=== PATIENT | male | born 1960 | race Caucasian/White ===

== ENCOUNTER 2016-05-03 14:13 | Emergency (ER) | payer OTHER ==
[2016-05-03 14:50] VITALS: BP 134/75
[2016-05-03 15:20] LABS: Hematocrit 38 % (42-52); Hemoglobin 12.5 g/dl (14.0-18.0); Mean Corpuscular HGB Conc 33 g/dl (31-36); Mean Corpuscular Hemoglobin 30 pg (27-31); Mean Corpuscular Volume 92 fL (80-94); Mean Platelet Volume 8 um3 (7.4-10.4); Red Blood Count 4.09 10^6/ul (4.0-5.4); Red Cell Distribution Width 15 % (10.5-15)
--- NOTE | 2016-05-03 15:20 | RAD ---
HISTORY: Altered mental pedis COMPARISONS: None TECHNIQUE: Multiple contiguous axial CT scans were obtained of the head without intravenous contrast. FINDINGS: HEMORRHAGE/INFARCT: There is no hemorrhage or acute infarct. MASSES/SHIFT: There is no mass or shift. EXTRA-AXIAL SPACES: There are no extra-axial fluid collections. SULCI AND VENTRICLES: The sulci and ventricles are normal in size and position for the patient's stated age. CEREBRUM: There are no focal parenchymal abnormalities. BRAINSTEM: There are no focal parenchymal abnormalities. CEREBELLUM: There are no focal parenchymal abnormalities. VESSELS: The vessels are grossly normal. PARANASAL SINUSES: The paranasal sinuses are clear. ORBITS: The orbits are unremarkable. BONES AND SOFT TISSUE: No bone or soft tissue abnormalities are noted. OTHER: None IMPRESSION: NO ACUTE INTRACRANIAL PATHOLOGY.
--- NOTE | 2016-05-03 15:25 | RAD ---
INDICATION: Unresponsiveness COMPARISON: None. TECHNIQUE: Single AP portable view of the chest was obtained. FINDINGS: Image quality is compromised due to the relative inferiority of a portable chest x-ray. The heart and mediastinum exhibit normal size and contour. The lungs are grossly clear. There is no evidence of a large pleural effusion. Visualized bones are normal for the patient's age. IMPRESSION: No radiographic evidence for acute cardiopulmonary abnormality on this portable chest x-ray.
[2016-05-03 15:37] LABS: ALT 50 U/L (7-52); AST 65 U/L (13-39); Albumin 3.8 g/dL (3.2-5.2); Alkaline Phosphatase 106 U/L (34-104); Anion Gap 7 mmol/L (2-11); BUN/Creatinine Ratio 7.7 (8-20); Blood Urea Nitrogen 8 mg/dL (6-24); CO2 Carbon Dioxide 27 mmol/L (22-32); Calcium 9.3 mg/dL (8.6-10.3); Chloride 106 mmol/L (101-111); EGFR Non-African American 73.9 (>60); Glucose 122 mg/dL (70-100); Potassium 3.6 mmol/L (3.5-5.0); Sodium 140 mmol/L (133-145); Total Protein 7.8 g/dL (6.4-8.9)
[2016-05-03 15:39] LABS: Troponin I 0.01 ng/mL (<0.04)
[2016-05-03 15:56] LABS: Alcohol 249 mg/dL (<10); Salicylate < 2.50 mg/dL (<30)
[2016-05-03 17:10] LABS: Urine Bilirubin Negative (Negative); Urine Glucose Negative (Negative); Urine Nitrite Negative (Negative)
--- NOTE | 2016-05-03 17:22 | ED ---
Chris Rajan Adam, scribed for Wendy Ness MD on 05/03/16 at 1657 . Substance Abuse/Use - HPI Summary HPI Summary: Pt is a 56 year old male presenting after excessive EtOH intake. He states that he drank too much last night and his family was unable to wake him up this morning. He has no complaints at this time. He denies any feelings of SI. He denies any use of drugs or tobacco. Pt lives alone. PMHx of DM. - History Of Current Complaint Chief Complaint: EDSubstanceAbuse Stated Complaint: UNRESPONSIVE Time Seen by Provider: 05/03/16 14:44 Hx Obtained From: Patient Ingestion History: Type/Name Of Drug - EtOH, Approximate Time Of Ingestion - Last night Overdose Characteristics: Oral Timing Of Abuse: Binge Use Severity Initially: Moderate Severity Currently: Mild Character: Lethargic Aggravating Factor(s): Nothing Alleviating Factor(s): Nothing Associated Signs And Symptoms: Negative - Allergies/Home Medications Allergies/Adverse Reactions: Allergies Allergy/AdvReac Type Severity Reaction Status Date / Time No Known Allergies Allergy Verified 10/01/13 13:35 PMH/Surg Hx/FS Hx/Imm Hx Endocrine/Hematology History: Reports: Hx Diabetes Cardiovascular History: Reports: Hx Hypercholesterolemia, Hx Hypertension Denies: Hx Pacemaker/ICD History: Denies: Hx Renal Disease Musculoskeletal History: Reports: Hx Back Problems Sensory History: Denies: Hx Hearing Aid Psychiatric History: Reports: Hx Depression Denies: Hx Panic Disorder Infectious Disease History: No Infectious Disease History: Denies: Traveled Outside the [place] in Last 30 Days - Family History Known Family History: Positive: Cardiac Disease, Hypertension Negative: Blood Disorder - Social History Occupation: Unemployed Lives: Alone Alcohol Use: Daily Hx Substance Use: No Substance Use Type: Reports: None Hx Tobacco Use: Yes Smoking Status (MU): Former Smoker Type: Cigarettes Amount Used/How Often: 5-10 CIGARETTES PER DAY Have You Smoked in the Last Year: Yes Review of Systems Positive: Fatigue Positive: Other - Scabs with dried blood on left lower leg Psychological: Normal Negative: Depressed All Other Systems Reviewed And Are Negative: Yes Physical Exam Triage Information Reviewed: Yes Vital Signs On Initial Exam: Initial Vitals Temp Pulse Resp BP Pulse Ox 98.1 F 79 10 134/75 90 05/03/16 14:40 05/03/16 14:40 05/03/16 14:40 05/03/16 14:40 05/03/16 14:40 Vital Signs Reviewed: Yes Appearance: Positive: Well-Appearing, No Pain Distress Skin: Positive: Warm, Skin Color Reflects Adequate Perfusion, Dry, Other - Scabs with dried blood on left lower leg Eyes: Positive: EOMI, LAURA ENT: Positive: Pharynx normal, TMs normal Neck: Positive: Supple, Nontender Respiratory/Lung Sounds: Positive: Clear to Auscultation, Breath Sounds Present. Negative: Rales, Rhonchi, Wheezes Cardiovascular: Positive: RRR. Negative: Murmur, Rub Abdomen Description: Positive: Nontender, Soft. Negative: Distended, Guarding Bowel Sounds: Positive: Present Musculoskeletal: Positive: Strength/ROM Intact. Negative: Edema Left, Edema Right Neurological: Positive: Sensory/Motor Intact, Alert, Oriented to Person Place, Time, CN Intact II-III Psychiatric: Positive: Affect/Mood Appropriate - Jillian Coma Scale Coma Scale Total: 15 Diagnostics - Vital Signs Vital Signs Temp Pulse Resp BP Pulse Ox 05/03/16 16:00 71 19 96 05/03/16 15:20 75 13 96 05/03/16 15:00 10 05/03/16 14:47 81 6 87 05/03/16 14:45 134/75 05/03/16 14:40 98.1 F 79 10 134/75 90 - Laboratory Lab Results: Lab Results 05/03/16 05/03/16 05/03/16 Range/Units 14:35 14:35 14:35 WBC 4.0 (3.5-10.8) 10^3/ul RBC 4.09 (4.0-5.4) 10^6/ul Hgb 12.5 L (14.0-18.0) g/dl Hct 38 L (42-52) % MCV 92 (80-94) fL MCH 30 (27-31) pg MCHC 33 (31-36) g/dl RDW 15 (10.5-15) % Plt Count 134 L (150-450) 10^3/ul MPV 8 (7.4-10.4) um3 Neut % (Auto) 58.6 (38-83) % Lymph % (Auto) 25.2 (25-47) % [place] % (Auto) 9.7 H (1-9) % Eos % (Auto) 4.7 (0-6) % Baso % (Auto) 1.8 (0-2) % Absolute Neuts (auto) 2.4 (1.5-7.7) 10^3/ul Absolute Lymphs (auto) 1.0 (1.0-4.8) 10^3/ul Absolute Monos (auto) 0.4 (0-0.8) 10^3/ul Absolute Eos (auto) 0.2 (0-0.6) 10^3/ul Absolute Basos (auto) 0.1 (0-0.2) 10^3/ul Absolute Nucleated RBC 0 10^3/ul Nucleated RBC % 0.1 Sodium 140 (133-145) mmol/L Potassium 3.6 (3.5-5.0) mmol/L Chloride 106 (101-111) mmol/L Carbon Dioxide 27 (22-32) mmol/L Anion Gap 7 (2-11) mmol/L BUN 8 (6-24) mg/dL Creatinine 1.04 (0.67-1.17) mg/dL Est GFR ( Amer) 95.0 (>60) Est GFR (Non-Af Amer) 73.9 (>60) BUN/Creatinine Ratio 7.7 L (8-20) Glucose 122 H (70-100) mg/dL Lactic Acid (0.5-2.0) mmol/L Calcium 9.3 (8.6-10.3) mg/dL Total Bilirubin 0.60 (0.2-1.0) mg/dL AST 65 H (13-39) U/L ALT 50 (7-52) U/L Alkaline Phosphatase 106 H (34-104) U/L Ammonia 51 (16-53) mol/L Troponin I 0.01 (<0.04) ng/mL Total Protein 7.8 (6.4-8.9) g/dL Albumin 3.8 (3.2-5.2) g/dL Globulin 4.0 (2-4) g/dL Albumin/Globulin Ratio 1.0 (1-3) Salicylates < 2.50 (<30) mg/dL Serum Alcohol 249 H (<10) mg/dL 05/03/16 Range/Units 14:35 WBC (3.5-10.8) 10^3/ul RBC (4.0-5.4) 10^6/ul Hgb (14.0-18.0) g/dl Hct (42-52) % MCV (80-94) fL MCH (27-31) pg MCHC (31-36) g/dl RDW (10.5-15) % Plt Count (150-450) 10^3/ul MPV (7.4-10.4) um3 Neut % (Auto) (38-83) % Lymph % (Auto) (25-47) % [place] % (Auto) (1-9) % Eos % (Auto) (0-6) % Baso % (Auto) (0-2) % Absolute Neuts (auto) (1.5-7.7) 10^3/ul Absolute Lymphs (auto) (1.0-4.8) 10^3/ul Absolute Monos (auto) (0-0.8) 10^3/ul Absolute Eos (auto) (0-0.6) 10^3/ul Absolute Basos (auto) (0-0.2) 10^3/ul Absolute Nucleated RBC 10^3/ul Nucleated RBC % Sodium (133-145) mmol/L Potassium (3.5-5.0) mmol/L Chloride (101-111) mmol/L Carbon Dioxide (22-32) mmol/L Anion Gap (2-11) mmol/L BUN (6-24) mg/dL Creatinine (0.67-1.17) mg/dL Est GFR ( Amer) (>60) Est GFR (Non-Af Amer) (>60) BUN/Creatinine Ratio (8-20) Glucose (70-100) mg/dL Lactic Acid 1.6 (0.5-2.0) mmol/L Calcium (8.6-10.3) mg/dL Total Bilirubin (0.2-1.0) mg/dL AST (13-39) U/L ALT (7-52) U/L Alkaline Phosphatase (34-104) U/L Ammonia (16-53) mol/L Troponin I (<0.04) ng/mL Total Protein (6.4-8.9) g/dL Albumin (3.2-5.2) g/dL Globulin (2-4) g/dL Albumin/Globulin Ratio (1-3) Salicylates (<30) mg/dL Serum Alcohol (<10) mg/dL Result Diagrams: 05/03/16 14:35 05/03/16 14:35 Lab Statement: Any lab studies that have been ordered have been reviewed, and results considered in the medical decision making process. - Radiology CXR Radiology Interpretation Completed By: Radiologist - IMPRESSION: No radiographic evidence for acute cardiopulmonary abnormality on this portable chest x-ray. - CT BRAIN CT Interpretation Completed By: Radiologist - IMPRESSION: NO ACUTE INTRACRANIAL PATHOLOGY. - Additional Comments Diagnostic Additional Comments: Serum Alcohol - 249 Course/Dx - Course Course Of Treatment: 56 yo male arrived with etoh pt did well here sleeping and then asked to go home, able to ambulate etoh clearly below 200 determined safe to be at home - Diagnoses Provider Diagnoses: ETOH abuse Discharge - Discharge Plan Condition: Stable Disposition: HOME Patient Education Materials: Alcohol Intoxication (ED) Referrals: Bear Tapia MD [Primary Care Provider] - Additional Instructions: Follow up with Dr. Tapia this week. The documentation as recorded by the Chris armstrong Adam accurately reflects the service I personally performed and the decisions made by me, Wendy Ness MD.
[2016-05-03 21:43] LABS: TSH (Thyroid Stimulating Horm) 1.03 mcIU/mL (0.34-5.60)
== END 2016-05-03 17:05 | disposition home or self-care (01) ==
LOC: ED 14:13
DX: F10.129 Alcohol abuse with intoxication, unspecified (principal); Y90.8 Blood alcohol level of 240 mg/100 ml or more
CPT/HCPCS: 36415; 70450; 71010; 80053; 80320; 80329; 81003; 82140; 83605; 84443; 84484; 85025; 99282; G0480

== ENCOUNTER 2016-05-18 00:07 | Observation (INO) | payer OTHER ==
[2016-05-18] MEDS ORDERED: NS 0.9% 1000 ML* 1,000 ML IV ONE ×2 (00:16→00:34)
[2016-05-18] MEDS ORDERED: Naloxone* 0.4 MG/ML 1 ML VIAL IV PUSH ONE (00:34)
[2016-05-18] MEDS ORDERED: Naloxone* 0.4 MG/ML 10 ML VIAL ONE (00:35)
[2016-05-18 01:23] LABS: Hematocrit 32 % (42-52); Hemoglobin 10.6 g/dl (14.0-18.0); Mean Corpuscular HGB Conc 33 g/dl (31-36); Mean Corpuscular Hemoglobin 31 pg (27-31); Mean Corpuscular Volume 92 fL (80-94); Mean Platelet Volume 9 um3 (7.4-10.4); Red Blood Count 3.44 10^6/ul (4.0-5.4); Red Cell Distribution Width 15 % (10.5-15); White Blood Count 5.7 10^3/ul (3.5-10.8)
[2016-05-18 01:29] LABS: Add Diff/Slide Review? Slide Review Added; Comments Flag Yes
[2016-05-18 01:38] LABS: ALT 41 U/L (7-52); AST 64 U/L (13-39); Albumin 2.9 g/dL (3.2-5.2); Alkaline Phosphatase 67 U/L (34-104); BUN/Creatinine Ratio 10.5 (8-20); Blood Urea Nitrogen 16 mg/dL (6-24); CO2 Carbon Dioxide 21 mmol/L (22-32); Calcium 7.9 mg/dL (8.6-10.3); Chloride 101 mmol/L (101-111); EGFR African American 61.3 (>60); EGFR Non-African American 47.7 (>60); Globulin 3.2 g/dL (2-4); Glucose 141 mg/dL (70-100); Sodium 133 mmol/L (133-145); Total Protein 6.1 g/dL (6.4-8.9)
[2016-05-18 01:43] LABS: Anion Gap 11 mmol/L (2-11); Potassium 2.6 mmol/L (3.5-5.0)
[2016-05-18] MEDS ORDERED: KCL 20 MEQ/100 ML IVPREMIX* 20 MEQ/100 ML BAG IV ONE (01:45)
[2016-05-18] MEDS ORDERED: cefTRIAXone(*) 1 GM in NS 0.9% 50 ML* 50 ML IVPB ONE (02:08)
[2016-05-18] MEDS ORDERED: Clindamycin 900 MG IVPREMIX(* 900 MG/50 ML SDV IV ONE (02:08)
[2016-05-18 02:19] LABS: Acetaminophen < 15 mcg/mL; Alcohol 233 mg/dL (<10); Salicylate < 2.50 mg/dL (<30)
--- NOTE | 2016-05-18 02:57 | HP ---
H&P (Free Text) History and Physical: PCP: Saravanan Tapia MD Date/Time of Evaluation: 05/18/2016 0250 CC: overdose HPI: Mr Gorman is a 56YO male currently too somnolent to give a history. He rouses with moderate tactile stimulation, but falls back to sleep prior to being able to answer a question. Therefore this history is obtained via medical staff & the available medical record. Per EMS report, they were called to Mr Gorman's home by family who reported extensive alcohol consumption. Upon their arrival, he was found unresponsive with agonal breathing. After an intranasal dose of naloxone followed by a 2mg IV dose, his respirations had stabilized and he was able to open his eyes and mumble. In the ED, he has been given an additional 2mg IV naloxone for respiratory suppression to which he again responded favorably. However, currently he is asleep snoring lightly with an saO2 of 83% on 15L oxymask. Have requested switch to vapotherm and will admit to ICU on naloxone GTT. Evaluation is notable for hypotension, BP 80-90/40-50s w/ MAP in low 60s. Labs are notable for interval worsening of a normocytic anemia, K 2.6, creatinine 1.5 (baseline 0.9), albumin 2.9, & glucose 141. Serum alcohol is 233, negative salicylates & acetaminophen. ECG is benign. CXR shows interval development of RUL infiltrate suspicious for aspiration. PMedHx Allergies No Known Allergies Allergy (Verified 10/01/13 13:35) DM2 lower GI bleed HTN HLD OAB depression Ambulatory Orders Nursing to reconcile. FLUoxetine CAP* [PROzac CAP*] 10 mg PO DAILY 07/20/12 Simvastatin [Zocor 5 MG-] 5 mg PO DAILY 07/20/12 Sitagliptin Phosphate [Januvia] 100 mg PO DAILY 07/20/12 Lisinopril & Hydrochlorothiazi [Lisinopril/Hydrochlorothi 20-12.5 mg] 1 tab PO DAILY 10/01/13 Oxybutynin Chloride [Oxybutynin Chloride ER] 15 mg PO BEDTIME 10/01/13 Perphenazine 2 tab PO BEDTIME 10/01/13 metFORMIN* [Glucophage*] 500 mg PO BID 10/01/13 Cyclobenzaprine TAB* [Flexeril TAB*] 10 mg PO TID PRN #14 tab 08/28/15 HYDROcodone/ACETAMIN 5-325 MG* [Hustle 5-325 TAB*] 1 tab PO Q4H PRN #14 tab MDD 6 08/28/15 Cephalexin CAP* [Keflex CAP*] 500 mg PO QID #40 cap 11/21/15 oxyCODONE/Acetamin 5/325 MG* [Percocet 5/325 TAB*] 1 tab PO Q8H PRN #12 tab MDD THREE TABS 11/21/15 PSurgHx unobtainable SocHx: unobtainable FamHx: Mother: uterine CA; otherwise positive for DM ROS: as above, otherwise reviewed and all were negative Constitutional: NAD, normally developed, overweight white male vitals: Vital Signs Temp 36.6 C 05/18/16 03:25 Pulse 84 05/18/16 03:00 Resp 15 05/18/16 03:00 BP 95/49 05/18/16 02:41 Pulse Ox 94 05/18/16 03:00 Intake & Output 05/17/16 05/17/16 05/18/16 11:59 23:59 11:59 Intake Total 2250 Balance 2250 Weight 99.79 kg Intake: IV Fluids 2150 IVPB 100 HEENM: atraumatic; sclera/conjunctiva: non-icteric/clear; pupils 2-3mm, minimally reactive; EOMI: unable to assess, disconjugate gaze; hearing: unable to assess; oropharynx: clear, mucosa tacky Neck: soft tissue: non-tender; thyroid: normal Pulmonary: clear to auscultation bilaterally, good aeration, no accessory muscle use CV: RR/RR, normal S1S2, no carotid bruit, no jugular venous distention, 2+ B DP/ PT, no edema Abdominal: soft, non-distended, non-tender, no rebound/guarding/rigidity, normoactive bowel sounds, no hepatosplenomegaly or masses, no costovertebral angle tenderness Musculoskeletal: general: grossly intact; gait: unable to assess Integumental: normal appearance and texture of exposed skin Psychiatric orientation: somnolent, unable to answer questions affect: intoxicated mood: acquiescent eye contact: absent content: absent responses: gutteral, incomprehensible insight: poor to absent currently Testing: Lab Results 05/18/16 05/18/16 Range/Units 01:15 01:15 WBC 5.7 (3.5-10.8) 10^3/ul RBC 3.44 L (4.0-5.4) 10^6/ul Hgb 10.6 L (14.0-18.0) g/dl Hct 32 L (42-52) % MCV 92 (80-94) fL MCH 31 (27-31) pg MCHC 33 (31-36) g/dl RDW 15 (10.5-15) % Plt Count 87 L (150-450) 10^3/ul MPV 9 (7.4-10.4) um3 Neut % (Auto) 83.4 H (38-83) % Lymph % (Auto) 7.3 L (25-47) % [place] % (Auto) 7.7 (1-9) % Eos % (Auto) 0.9 (0-6) % Baso % (Auto) 0.7 (0-2) % Absolute Neuts (auto) 4.7 (1.5-7.7) 10^3/ul Absolute Lymphs (auto) 0.4 L (1.0-4.8) 10^3/ul Absolute Monos (auto) 0.4 (0-0.8) 10^3/ul Absolute Eos (auto) 0 (0-0.6) 10^3/ul Absolute Basos (auto) 0 (0-0.2) 10^3/ul Absolute Nucleated RBC 0 10^3/ul Nucleated RBC % 0.1 Hem Pathologist Commnt Pending Sodium 133 (133-145) mmol/L Potassium 2.6 L* (3.5-5.0) mmol/L Chloride 101 (101-111) mmol/L Carbon Dioxide 21 L (22-32) mmol/L Anion Gap 11 (2-11) mmol/L BUN 16 (6-24) mg/dL Creatinine 1.52 H (0.67-1.17) mg/dL Est GFR ( Amer) 61.3 (>60) Est GFR (Non-Af Amer) 47.7 (>60) BUN/Creatinine Ratio 10.5 (8-20) Glucose 141 H (70-100) mg/dL Calcium 7.9 L (8.6-10.3) mg/dL Total Bilirubin 0.50 (0.2-1.0) mg/dL AST 64 H (13-39) U/L ALT 41 (7-52) U/L Alkaline Phosphatase 67 (34-104) U/L Total Protein 6.1 L (6.4-8.9) g/dL Albumin 2.9 L (3.2-5.2) g/dL Globulin 3.2 (2-4) g/dL Albumin/Globulin Ratio 0.9 L (1-3) TSH 3.10 (0.34-5.60) mcIU/mL Salicylates < 2.50 (<30) mg/dL Acetaminophen < 15 mcg/mL Serum Alcohol 233 H (<10) mg/dL ECG, personally reviewed: 1st degree AV block rate 76, no ischemia CXR, personally reviewed: interval development of RUL infiltrate Impression: 56M presenting with acute alcohol intoxication & suspected opioid overdose DIAGNOSIS & PLAN Primary acute alcohol intoxication & suspected opioid overdose : hold sedating medications : ICU admission : Vapotherm, wean as able : naloxone GTT : check urine tox screen : social services designee consult : consider psychiatric consult once able to give HX : supportive care RML pneumonia suspicious for cleopatra aspiration : IV clindamycin : IVFs : blood & sputum CXs : check rapid influenza : check urine Legionella & S pneumo antigens : supplemental oxygen : guaifenesin AREN : suspect pre-renal : aggressive IVFs, 5L given in ED : temp chaudhry for adequate fluid monitoring in a critically ill patient : monitor hypoKalemia : gentle replacement given AREN, monitor worsening normocytic anemia : HX lower GI bleed : trend H&H : check stool occult blood : IV pantoprazole : telemetry suspect protein calorie malnutrition : check prealbumin Secondary DM2 : NPO : basal/correctional protocol : hold sitagliptin & metformin : check A1c HTN : hold antihypertensives given current hypotension 2nd suspected opioid OD HLD : continue simvastatin once able to be reconciled OAB : continue oxybutynin once able to be reconciled depression : continue fluoxetine once able to be reconciled Admission Rational: observation for suspected polysubstance OD requiring ICU level monitoring to prevent morbidity/mortality DVTp: SCDs, consider heparin SQ once CT brain reported Code Status: full HCP: unable to obtain
[2016-05-18] MEDS ORDERED: Albuterol 2.5 MG/3 ML NEB.SOL* (0.083%) INH PRN (04:42)
[2016-05-18] MEDS ORDERED: Melatonin (NF) 3 MG TAB PO PRN (04:42)
[2016-05-18] MEDS ORDERED: Ondansetron INJ* 2 MG/ML VIAL IV PRN (04:42)
[2016-05-18] MEDS ORDERED: Acetaminophen TAB* 325 MG PO PRN (04:42)
[2016-05-18] MEDS ORDERED: Naloxone* 2 MG in NS 0.9% 250 ML* 245 ML IV SCH (05:00)
[2016-05-18 05:13] LABS: Magnesium 1.4 mg/dL (1.9-2.7)
[2016-05-18 05:17] LABS: Troponin I 0.02 ng/mL (<0.04)
[2016-05-18] MEDS ORDERED: Magnesium Sulfate 2 GM IV* 2 GM/50 ML BAG IVPB ONE (05:20)
[2016-05-18] MEDS: Insulin LISPRO* 1 UNITS UNIT SUBCUT SCH ×5 (06:19→20:56)
[2016-05-18] MEDS: Pantoprazole IV* 40 MG IV SCH ×2 (06:20→08:35)
--- NOTE | 2016-05-18 07:43 | RAD ---
HISTORY: Hypoxia, overdose COMPARISONS: May 03, 2016 VIEWS:1: Single frontal portable view of the chest at 1:25 AM FINDINGS: LINES AND TUBES: None. CARDIOMEDIASTINAL SILHOUETTE: The cardiomediastinal silhouette is normal for portable technique. PLEURA: The costophrenic angles are sharp. No pleural abnormalities are noted. LUNG PARENCHYMA: There is minimal patchy alveolar opacification of the right upper lung ABDOMEN: The upper abdomen is clear. There is no subphrenic gas. BONES AND SOFT TISSUES: No bone or soft tissue abnormalities are noted. IMPRESSION: PATCHY CONSOLIDATION OF THE RIGHT UPPER LUNG.
[2016-05-18 07:55] LABS: Urine Bilirubin Negative (Negative); Urine Glucose Negative (Negative); Urine Nitrite Negative (Negative)
--- NOTE | 2016-05-18 08:02 | RAD ---
INDICATION: Change in mental status COMPARISON: None TECHNIQUE: Noncontrast axial source images were acquired from the skull base to the vertex. FINDINGS: Ventricles/sulci: The ventricles and cisterns are normal in size and configuration for age. Brain parenchyma: There is no focal parenchymal finding, evidence of intracranial mass, or intracranial mass effect. Intracranial hemorrhage:None. Extra-axial spaces: There are no abnormal extra axial fluid collections or evidence of extra-axial mass. Calvarium: There is no calvarial fracture or other calvarial abnormality. Scalp: There is no evidence of scalp or extracalvarial soft tissue abnormality. Paranasal sinuses/mastoid: The paranasal sinuses and mastoid air cells are clear. Other: None. IMPRESSION: NEGATIVE EXAMINATION
[2016-05-18 08:12] LABS: Benzodiazepine Urine Screen None Detected (None Detect)
[2016-05-18] MEDS: Docusate CAP* 100 MG PO SCH ×2 (08:34→20:58)
[2016-05-18] MEDS ORDERED: guaiFENesin ER TAB 600 MG PO SCH (09:00)
[2016-05-18 09:24] LABS: Hematocrit 37 % (42-52); Hemoglobin 12.4 g/dl (14.0-18.0); Mean Corpuscular HGB Conc 33 g/dl (31-36); Mean Corpuscular Hemoglobin 31 pg (27-31); Mean Corpuscular Volume 92 fL (80-94); Mean Platelet Volume 9 um3 (7.4-10.4); Red Blood Count 4.04 10^6/ul (4.0-5.4); Red Cell Distribution Width 15 % (10.5-15)
[2016-05-18 09:25] LABS: Comments Flag Yes
[2016-05-18 09:42] LABS: BUN/Creatinine Ratio 11.4 (8-20); Calcium 7.7 mg/dL (8.6-10.3); EGFR African American 72.2 (>60); EGFR Non-African American 56.1 (>60); Potassium 3.6 mmol/L (3.5-5.0)
[2016-05-18] MEDS ORDERED: Clindamycin 600 MG IVPREMIX(* 600 MG/50 ML SDV IV SCH (11:00)
[2016-05-18] MEDS ORDERED: Albuterol/Ipratropium NEB.SOL* Albuterol 2.5 MG/Ipratropium 0.5 MG 3 ML INH PRN (11:58)
--- NOTE | 2016-05-18 11:58 | DCNOTE ---
Subjective Date of Service: 05/18/16 Interval History: Patient states he partied too much last night, used cocaine. Feels better now. Objective Active Medications: Acetaminophen (Tylenol Tab*) 650 mg PO Q6H PRN PRN Reason: FEVER/PAIN Albuterol (Ventolin 2.5 Mg/3 Ml Neb.Shonna*) 2.5 mg INH Q2H PRN PRN Reason: SOB/WHEEZING Docusate Sodium (Colace Cap*) 200 mg PO BID [facility] Last Admin: 05/18/16 08:34 Dose: Not Given Lactated Ringer's (Lactated Ringers 1000 Ml Bag*) 1,000 mls @ 200 mls/hr IV PER RATE [facility] Last Admin: 05/18/16 11:03 Dose: 200 mls/hr Naloxone HCl 2 mg/ Sodium (Chloride) 250 mls @ 62.5 mls/hr IV .PER RATE [facility] PRN Reason: 0.5 MG/HR Last Admin: 05/18/16 06:09 Dose: 62.5 mls/hr Insulin Human Lispro (Humalog*) 0 units SUBCUT Q4H [facility] PRN Reason: Protocol Last Admin: 05/18/16 09:56 Dose: Not Given Melatonin (Melatonin (Nf)) 3 mg PO BEDTIME PRN; Protocol PRN Reason: Sleep Ondansetron HCl (Zofran Inj*) 4 mg IV Q6H PRN PRN Reason: NAUSEA Vital Signs 05/18/16 05/18/16 05/18/16 03:00 03:02 03:25 Temperature 97.9 F Pulse Rate 84 82 Respiratory 15 12 Rate Blood Pressure 83/51 86/54 (mmHg) O2 Sat by Pulse 94 94 Oximetry 05/18/16 05/18/16 05/18/16 03:30 04:00 04:30 Temperature Pulse Rate 85 82 78 Respiratory 14 11 12 Rate Blood Pressure 89/48 83/45 84/48 (mmHg) O2 Sat by Pulse 91 87 92 Oximetry 05/18/16 05/18/16 05/18/16 04:56 04:58 05:00 Temperature 98.1 F Pulse Rate 75 77 Respiratory 11 20 12 Rate Blood Pressure 87/48 88/41 (mmHg) O2 Sat by Pulse 93 99 Oximetry 05/18/16 05/18/16 05/18/16 05:01 05:17 05:30 Temperature Pulse Rate 75 74 74 Respiratory 12 13 12 Rate Blood Pressure 92/57 95/61 (mmHg) O2 Sat by Pulse 95 96 97 Oximetry 05/18/16 05/18/16 05/18/16 05:33 05:47 05:49 Temperature Pulse Rate 73 78 Respiratory 12 15 Rate Blood Pressure 101/71 115/66 (mmHg) O2 Sat by Pulse 98 100 Oximetry 05/18/16 05/18/16 05/18/16 06:00 06:09 06:15 Temperature Pulse Rate 79 77 Respiratory 12 12 15 Rate Blood Pressure 96/54 87/48 (mmHg) O2 Sat by Pulse 100 97 Oximetry 05/18/16 05/18/16 05/18/16 07:00 07:31 08:00 Temperature 98.4 F Pulse Rate 82 80 Respiratory 16 21 19 Rate Blood Pressure 110/62 86/56 (mmHg) O2 Sat by Pulse 95 99 Oximetry 05/18/16 05/18/16 05/18/16 08:45 09:00 09:56 Temperature Pulse Rate 88 Respiratory 18 23 18 Rate Blood Pressure 107/57 (mmHg) O2 Sat by Pulse 92 Oximetry 05/18/16 05/18/16 05/18/16 10:00 11:00 11:02 Temperature Pulse Rate 86 82 Respiratory 16 17 15 Rate Blood Pressure 112/59 115/56 (mmHg) O2 Sat by Pulse 90 91 Oximetry Oxygen Devices in Use Now: Nasal Cannula Appearance: Alert, partly up in bed. In good spirits. Looks comfortable. No cough during my visit. Ears/Nose/Mouth/Throat: Clear Oropharnyx, Mucous Membranes Moist Neck: NL Appearance and Movements; NL JVP, No Thyroid Enlargement, Masses Respiratory: Symmetrical Chest Expansion and Respiratory Effort, Clear to Percussion - mild rhonchi BL Cardiovascular: NL Sounds; No Murmurs; No JVD, RRR, No Edema, - Extremities: No Edema, No Clubbing, Cyanosis, - Skin: No Rash or Ulcers, No Nodules or Sclerosis, - Neurological: Alert and Oriented x 3, NL Sensation Result Diagrams: 05/18/16 09:16 05/18/16 09:16 Microbiology and Other Data: Microbiology 05/18/16 06:20 Nasal Screen MRSA (PCR)(MARYANN) - Final Nasal Mrsa Negative 05/18/16 07:30 Legionella Urinary Antigen - Final Urine Negative Legionella Streptococcus pneumoniae Ag Screen - Final Negative S. pneumo Antigen 05/18/16 05:15 Influenza Types A,B Antigen (MARYANN) - Final Nasal Specimen received for Influenza A/B Molecular testing Assess/Plan/Problems-Billing Assessment: - Patient Problems (1) Drug ingestion Current Visit: Yes Status: Acute Code(s): T50.901A - POISONING BY UNSP DRUG/ MEDS/BIOL SUBST, ACCIDENTAL, INIT SNOMED Code(s): 153876412 Comment: Accidental overdose of recreational drug(s). Recoverd. Patient counseled about possible consequences of risky behaviour. (2) Hypoxia Current Visit: Yes Status: Acute Code(s): R09.02 - HYPOXEMIA SNOMED Code(s ): 457743440 Comment: Will re-assess after patient walks and afer Duoneb tx. May nheed home O2. Rx Advair 100/50 2 puffs bid. (3) Tobacco abuse Current Visit: Yes Status: Acute Code(s): Z72.0 - TOBACCO USE SNOMED Code( s): 176763256 Comment: Pt advised to quit smoking and avoid second hand smoke. (4) Diabetes Current Visit: Yes Status: Acute Code(s): E11.9 - TYPE 2 DIABETES MELLITUS WITHOUT COMPLICATIONS SNOMED Code(s): 53416043 Comment: Resume metformin and sitagliptin. Note A1c 6.1% 05/18/16. (5) HTN (hypertension) Current Visit: Yes Status: Acute Code(s): I10 - ESSENTIAL (PRIMARY) HYPERTENSION SNOMED Code(s): 92875408 Comment: Resume lisinopril/thiazide combo tomorrow at home. Status and Disposition: Discharge 3 PM with or without O2. Fup Dr. Tapia.
[2016-05-18] MEDS ORDERED: Insulin GLARGINE(*) 1 UNITS UNIT SUBCUT SCH (21:00)
[2016-05-19] MEDS: Insulin LISPRO* 1 UNITS UNIT SUBCUT SCH (01:05)
[2016-05-19] MEDS ORDERED: Insulin LISPRO* 1 UNITS UNIT SUBCUT SCH (07:30)
[2016-05-19] MEDS: Docusate CAP* 100 MG PO SCH (07:53)
[2016-05-19 07:55] VITALS: BP 142/83
--- NOTE | 2016-05-19 08:55 | DCNOTE ---
Subjective Date of Service: 05/19/16 Interval History: No C/O. He feels at his baseline, anxious to go home. Good appetite. Objective Active Medications: Acetaminophen (Tylenol Tab*) 650 mg PO Q6H PRN PRN Reason: FEVER/PAIN Albuterol (Ventolin 2.5 Mg/3 Ml Neb.Shonna*) 2.5 mg INH Q2H PRN PRN Reason: SOB/WHEEZING Albuterol/Ipratropium (Duoneb (Albuterol 2.5 Mg/Ipratropium 0.5 Mg)) 1 neb INH Q4H PRN PRN Reason: SOB/WHEEZING Docusate Sodium (Colace Cap*) 200 mg PO BID [facility] Last Admin: 05/19/16 07:53 Dose: Not Given Insulin Human Lispro (Humalog*) 0 units SUBCUT ACHS [facility] PRN Reason: Protocol Last Admin: 05/19/16 07:53 Dose: Not Given Melatonin (Melatonin (Nf)) 3 mg PO BEDTIME PRN; Protocol PRN Reason: Sleep Ondansetron HCl (Zofran Inj*) 4 mg IV Q6H PRN PRN Reason: NAUSEA Vital Signs 05/18/16 05/18/16 05/18/16 09:00 09:56 10:00 Temperature Pulse Rate 88 86 Respiratory 23 18 16 Rate Blood Pressure 107/57 112/59 (mmHg) O2 Sat by Pulse 92 90 Oximetry 05/18/16 05/18/16 05/18/16 11:00 11:02 12:00 Temperature 97.9 F Pulse Rate 82 83 Respiratory 17 15 16 Rate Blood Pressure 115/56 104/62 (mmHg) O2 Sat by Pulse 91 90 Oximetry 05/18/16 05/18/16 05/18/16 12:02 12:22 13:00 Temperature Pulse Rate 87 Respiratory 15 22 Rate Blood Pressure (mmHg) O2 Sat by Pulse 92 91 Oximetry 05/18/16 05/18/16 05/18/16 14:36 14:50 16:11 Temperature 98.2 F 98.2 F 98.1 F Pulse Rate 79 79 80 Respiratory 16 16 20 Rate Blood Pressure 107/45 107/45 115/66 (mmHg) O2 Sat by Pulse 95 95 99 Oximetry 05/18/16 05/18/16 05/19/16 17:17 20:18 00:00 Temperature 98.7 F 98.6 F Pulse Rate 85 82 Respiratory 28 16 Rate Blood Pressure 128/66 135/66 (mmHg) O2 Sat by Pulse 99 91 92 Oximetry 05/19/16 05/19/16 05/19/16 05:36 06:30 07:14 Temperature 98.2 F 97.8 F Pulse Rate 95 85 80 Respiratory 16 15 Rate Blood Pressure 154/81 142/83 (mmHg) O2 Sat by Pulse 83 97 93 Oximetry 05/19/16 08:30 Temperature Pulse Rate 82 Respiratory 14 Rate Blood Pressure (mmHg) O2 Sat by Pulse 94 Oximetry Oxygen Devices in Use Now: None Appearance: Alert, standing by bed. In good spirits. Looks comfortable. Eyes: No Scleral Icterus Ears/Nose/Mouth/Throat: Clear Oropharnyx, Mucous Membranes Moist Neck: NL Appearance and Movements; NL JVP, No Thyroid Enlargement, Masses Respiratory: Symmetrical Chest Expansion and Respiratory Effort, Clear to Auscultation, Clear to Percussion Cardiovascular: NL Sounds; No Murmurs; No JVD, RRR Extremities: No Edema, No Clubbing, Cyanosis Skin: No Rash or Ulcers, No Nodules or Sclerosis Neurological: Alert and Oriented x 3, NL Sensation Result Diagrams: 05/18/16 09:16 05/18/16 09:16 Microbiology and Other Data: Microbiology 05/18/16 06:20 Nasal Screen MRSA (PCR)(MARYANN) - Final Nasal Mrsa Negative 05/18/16 07:30 Legionella Urinary Antigen - Final Urine Negative Legionella Streptococcus pneumoniae Ag Screen - Final Negative S. pneumo Antigen 05/18/16 05:15 Influenza Types A,B Antigen (MARYANN) - Final Nasal Specimen received for Influenza A/B Molecular testing Assess/Plan/Problems-Billing Assessment: - Patient Problems (1) Drug ingestion Current Visit: Yes Status: Acute Code(s): T50.901A - POISONING BY UNSP DRUG/ MEDS/BIOL SUBST, ACCIDENTAL, INIT SNOMED Code(s): 495827579 Comment: Accidental overdose of recreational drug(s). Recoverd. Patient counseled again about possible consequences of risky behaviour. (2) Hypoxia Current Visit: Yes Status: Acute Code(s): R09.02 - HYPOXEMIA SNOMED Code(s ): 278907492 Comment: O2 sat 89-91% on RA 05/19. (3) Tobacco abuse Current Visit: Yes Status: Acute Code(s): Z72.0 - TOBACCO USE SNOMED Code( s): 326603887 Comment: Pt advised to quit smoking and avoid second hand smoke. (4) Diabetes Current Visit: Yes Status: Acute Code(s): E11.9 - TYPE 2 DIABETES MELLITUS WITHOUT COMPLICATIONS SNOMED Code(s): 11749427 Comment: Continue metformin and sitagliptin. Note A1c 6.1% 05/18/16. (5) HTN (hypertension) Current Visit: Yes Status: Acute Code(s): I10 - ESSENTIAL (PRIMARY) HYPERTENSION SNOMED Code(s): 94362519 Comment: D/C lisinopril/thiazide combo. Has appt with Dr. Tapia today. Status and Disposition: Discharge now. Has appt with Dr. Tapia today.
--- NOTE | 2016-05-19 10:26 | DS ---
CC: Dr. Tapia DATE OF ADMISSION: 05/18/2016. DATE OF DISCHARGE: 05/19/2016. HISTORY: This 56-year-old man presented with an overdose of medications. He was using cocaine, pos sibly other recreational drugs. He was too somnolent to give a history of arrival here. Apparently the family called EMS because of suspected excessive alcohol consumption. In fact, his alcohol lev el was 233. He had a little bit of response to IV Naloxone which was given more than once. He is monitored that first night in the ICU. He was somewhat lethargic, may be difficult to evaluat e by his personality. By the day of discharge, he was definitely at his baseline, quite agile. I n ote that he did have some acute kidney injury which was improving. I think with avoiding over intox ication with normal oral intake, it will correct to baseline. His creatinine fell from 1.52 to 1.32 while he was in the hospital. It was not repeated on the day of discharge. His blood pressure was low. His antihypertensive medication was withheld. On the day of discharge, he was 142/83. I yanira d him not to take it again, but to follow Dr. Tapia's advice in using it in the future, possibl y a lower dose can be instituted as an outpatient. He did have blood pressures as low as 83/45. Of course this was while a number of medications, both licit and illicit, were circulating his blood, possibly to excess. I note his acetaminophen and salicylate levels were undetectable. DISCHARGE MEDICATIONS: 1. Sitagliptin 100 mg daily. 2. Fluoxetine 10 mg daily. 3. Simvastatin 5 mg daily. 4. Metformin 500 mg b.i.d. 5. Perphenazine two tablets at bedtime. 6. Oxybutynin 15 mg at bedtime. 7. Hydrocodone/acetaminophen 5/325 one every 4 hours prn. 8. Cyclobenzaprine 10 [place] t.i.d. prn. [id number]/[facility] #: [id number]
--- NOTE | 2016-05-19 21:27 | ED ---
Sixto Rajan Billy, scribed for David Beltre MD on 05/18/16 at 0054 . Substance Abuse/Use - HPI Summary HPI Summary: Patient is a 56 year-old male coming to [facility] for evaluation of OD today. Per EMS, patient had been drinking EtOH throughout the day, and his niece called 911 when he was found unresponsive. He states in the ED that he had "10 shots" of some unspecified liquor. He also reports consuming marijuana, but denies any other drug use. EMS reports that bystanders believe he had taken "pills." Patient was given 2mg Narcan by EMS. EMS states that he is hypotensive at this time. 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 Ingestion History: Type/Name Of Drug - EtOH and marijuana Overdose Characteristics: Oral Timing Of Abuse: Binge Use Severity Initially: Moderate Severity Currently: Moderate Character: Lethargic, Stuporous Aggravating Factor(s): Nothing Alleviating Factor(s): Nothing Associated Signs And Symptoms: Intentional Ingestion - Allergies/Home Medications Allergies/Adverse Reactions: Allergies Allergy/AdvReac Type Severity Reaction Status Date / Time No Known Allergies Allergy Verified 10/01/13 13:35 PMH/Surg Hx/FS Hx/Imm Hx Endocrine/Hematology History: Reports: Hx Diabetes Cardiovascular History: Reports: Hx Hypercholesterolemia, Hx Hypertension Denies: Hx Pacemaker/ICD History: Denies: Hx Renal Disease Musculoskeletal History: Reports: Hx Back Problems Sensory History: Denies: Hx Hearing Aid Psychiatric History: Reports: Hx Depression Denies: Hx Panic Disorder Infectious Disease History: No Infectious Disease History: Denies: Traveled Outside the [place] in Last 30 Days - Family History Known Family History: Positive: Cardiac Disease, Hypertension Negative: Blood Disorder - Social History Alcohol Use: Daily Hx Substance Use: No Substance Use Type: Reports: None Hx Tobacco Use: Yes Smoking Status (MU): Former Smoker Type: Cigarettes Amount Used/How Often: 5-10 CIGARETTES PER DAY Have You Smoked in the Last Year: Yes Review of Systems Negative: Fever, Chills Negative: Erythema Negative: Ear Ache Negative: Chest Pain Negative: Shortness Of Breath, Cough Negative: Abdominal Pain, Vomiting, Nausea Negative: Myalgia, Edema Negative: Rash Neurological: Other - OD All Other Systems Reviewed And Are Negative: Yes Physical Exam - Summary Physical Exam Summary: Constitutional: Well-developed, Well-nourished, Alert. (-) Distressed Skin: Warm, Dry HENT: Normocephalic; Atraumatic Eyes: Conjunctiva normal. Pupils reactive to light, 4mm bilaterally. Neck: Musculoskeletal ROM normal neck. (-) JVD, (-) Stridor, (-) Tracheal deviation Cardio: Rhythm regular, rate normal, Heart sounds normal; Intact distal pulses; The pedal pulses are 2+ and symmetric. Radial pulses are 2+ and symmetric. (-) Murmur Pulmonary/Chest wall: Effort normal. (-) Respiratory distress, (-) Wheezes, (-) Rales Abd: Soft, (-) Tenderness, (-) Distension, (-) Guarding, (-) Rebound Musculoskeletal: (-) Edema Lymph: (-) Cervical adenopathy Neuro: Drowsy. Psych: Drowsy. Triage Information Reviewed: Yes Vital Signs On Initial Exam: Initial Vitals Temp Pulse Resp BP Pulse Ox 97.2 F 78 15 81/50 100 05/18/16 00:37 05/18/16 00:37 05/18/16 00:37 05/18/16 00:37 05/18/16 00:37 Vital Signs Reviewed: Yes Diagnostics - Vital Signs Vital Signs Temp Pulse Resp BP Pulse Ox 05/18/16 00:37 97.2 F 79 15 81/50 100 - Laboratory Result Diagrams: 05/18/16 01:15 05/18/16 01:15 Lab Statement: Any lab studies that have been ordered have been reviewed, and results considered in the medical decision making process. - Radiology CXR Radiology Interpretation Completed By: ED Physician - Possible patchy right upper lobe infiltrate. Consider aspiration. - EKG 0156 EKG Interpretation: NSR 76 bpm, no STEMI, no ectopy Re-Evaluation - Re-Evaluation First Eval Re-Evaluation Time: 01:02 Change: Improved Comment: BP improving, ~80 systolic. Course/Dx - Course Assessment/Plan: 56 y/o male BIBA to [facility] for evaluation of EtOH OD. BA measured at 233. In the ED course, patient was given clindamycin, rocephin, potassium chloride, and narcan. CXR shows a possible patchy right upper lobe infiltrate. EKG shows NSR without STEMI. Patient care discussed with Dr. Shaffer who accepts the patient for admission. - Diagnoses Provider Diagnoses: Alcohol abuse, Dehydration, Hypotension, Hypovolemia, Hypokalemia, Anemia - Physician Notifications Discussed Care Of Patient With: Dr. Shaffer (hospitalist) @ 0204: accepts admission. Dr. Shaffer (hopsitalist) @ 0249: discussed patient's anemia. He will perform a rectal exam and follow up on the results. - Critical Care Time Critical Care Time: 30-74 min - 45 minutes Discharge - Discharge Plan Condition: Stable Disposition: ADMITTED TO [facility] Referrals: Bear Tapia MD [Primary Care Provider] - The documentation as recorded by the Sixto armstrong Billy accurately reflects the service I personally performed and the decisions made by me, David Beltre MD.
== END 2016-05-19 09:35 | disposition home or self-care (01) ==
LOC: ED 00:07 → INTOOBSV 02:50 → ICU 02:50 → MED 14:25
PROVIDERS: ADMIT Hospitalist; ATTEND Internal Medicine
DX: T50.901A Poisoning by unspecified drugs, medicaments and biological substances, accidental (unintentional), initial encounter (principal); Y92.9 Unspecified place or not applicable; F10.129 Alcohol abuse with intoxication, unspecified; J18.9 Pneumonia, unspecified organism; N17.9 Acute kidney failure, unspecified; E87.6 Hypokalemia; D64.9 Anemia, unspecified; E11.9 Type 2 diabetes mellitus without complications; I10 Essential (primary) hypertension; E78.5 Hyperlipidemia, unspecified; F32.9 Major depressive disorder, single episode, unspecified; Z79.899 Other long term (current) drug therapy; Z79.84 Long term (current) use of oral hypoglycemic drugs; Z87.891 Personal history of nicotine dependence; R94.31 Abnormal electrocardiogram [ECG] [EKG]
CPT/HCPCS: 36415; 70450; 71010; 80048; 80053; 80307; 80320; 80329; 81003; 83036; 83605; 83735; 84134; 84443; 84484; 85025; 85060; 87040; 87502; 87641; 87899; 93005; 94760; 96365; 96367; 96375; 96376; 99291; A9270-GY; G0378; G0480; J0696; J2310; J3480

== ENCOUNTER 2016-11-09 13:58 | Emergency (ER) | payer OTHER ==
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
[2016-11-09 18:21] VITALS: BP 174/86
== END 2016-11-09 18:28 | disposition home or self-care (01) ==
LOC: ED 13:58
DX: I10 Essential (primary) hypertension (principal); S86.911A Strain of unspecified muscle(s) and tendon(s) at lower leg level, right leg, initial encounter; X50.9XXA Other and unspecified overexertion or strenuous movements or postures, initial encounter; Y93.9 Activity, unspecified; Y92.9 Unspecified place or not applicable; E11.9 Type 2 diabetes mellitus without complications; F17.210 Nicotine dependence, cigarettes, uncomplicated
CPT/HCPCS: 99282

== ENCOUNTER 2016-12-31 11:28 | Emergency (ER) | payer OTHER ==
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
[2016-12-31 13:41] LABS: Urine Bacteria Absent (Absent); Urine Bilirubin Negative (Negative); Urine Glucose Negative (Negative); Urine Nitrite Negative (Negative)
[2016-12-31 13:58] VITALS: BP 159/90
== END 2016-12-31 13:57 | disposition home or self-care (01) ==
LOC: ED 11:28
DX: S90.112A Contusion of left great toe without damage to nail, initial encounter (principal); I10 Essential (primary) hypertension; F32.9 Major depressive disorder, single episode, unspecified; F43.10 Post-traumatic stress disorder, unspecified; E11.9 Type 2 diabetes mellitus without complications; X58.XXXA Exposure to other specified factors, initial encounter; Y92.9 Unspecified place or not applicable
CPT/HCPCS: 81003; 81015; 99282

== ENCOUNTER 2017-03-16 10:56 | Emergency (ER) | payer OTHER ==
[2017-03-16] MEDS ORDERED: NS 0.9% 1000 ML* 1,000 ML IV ONE ×2 (11:40→13:05)
[2017-03-16 12:00] LABS: ABS Basophils 0 10^3/ul (0-0.2); ABS Eosinophils 0.1 10^3/ul (0-0.6); ABS Lymphocytes 0.9 10^3/ul (1.0-4.8); ABS Monocytes 0.3 10^3/ul (0-0.8); ABS Neutrophils 3.5 10^3/ul (1.5-7.7); ABS Nucleated RBC 0 10^3/ul; Eosinophil % 1.3 % (0-6); Hematocrit 35 % (42-52); Hemoglobin 12.1 g/dl (14.0-18.0); Mean Corpuscular HGB Conc 35 g/dl (31-36); Mean Corpuscular Hemoglobin 32 pg (27-31); Mean Corpuscular Volume 91 fL (80-94); Mean Platelet Volume 8 um3 (7.4-10.4); Nucleated Red Blood Cells % 0; Platelet Count 114 10^3/ul (150-450); Red Blood Count 3.83 10^6/ul (4.0-5.4); Red Cell Distribution Width 17 % (10.5-15); White Blood Count 4.8 10^3/ul (3.5-10.8)
[2017-03-16] MEDS ORDERED: Morphine INJ* 4 MG/ML 1 ML CARPUJECT IV ONE (12:01)
[2017-03-16] MEDS ORDERED: Ondansetron INJ* 2 MG/ML VIAL IV ONE (12:01)
[2017-03-16 12:13] LABS: EGFR Non-African American 44.9 (>60)
--- NOTE | 2017-03-16 12:32 | RAD ---
CLINICAL HISTORY: Left flank pain and hematuria COMPARISON: None TECHNIQUE: Noncontrast CT examination of the abdomen and pelvis from the lung bases through the initial tuberosities. FINDINGS: VISUALIZED LUNG BASES: The visualized lung bases are grossly clear. There is no pleural effusion. ABDOMEN AND PELVIS: Evaluation of the solid organs and vasculature is limited without intravenous contrast. The liver is homogenously hypodense with subtle nodularity noted along the anterior margin of the left lobe of the liver (axial image 39). Liver measures up to 21 cm in greatest cephalocaudal dimension. The homogenous spleen measures up to 13.1 cm in greatest axial dimension. The pancreas and adrenal glands are grossly normal in appearance. The gallbladder is normal. There are no renal calculi identified bilaterally. There is very mild hydronephrosis noted in the left kidney with a small degree of perinephric stranding relative to the right. There is a Estrada catheter in the urinary bladder which decompresses the bladder and contributes the appearance of circumferential wall thickening. Evaluation of the gastrointestinal tract is limited without oral contrast. The small and large bowel are not distended.The patient's normal appendix is identified in the right lower quadrant measuring 6 mm in diameter (coronal image 41). There are scattered distal colonic diverticula but none exhibit focal inflammatory change. There is no gross retroperitoneal or mesenteric lymphadenopathy. There is coarse atherosclerotic calcification in the prostate gland. The abdominal aorta and iliac arteries are normal in course and diameter. Degenerative changes include multilevel loss of intervertebral disc height involving the lower thoracic and lumbar spine and anterior marginal osteophyte formation.There are no sinister bone lesions. IMPRESSION: 1. There is mild left-sided hydronephrosis and perinephric stranding but no renal calculi are identified in either ureter or the urinary bladder. 2. A Estrada catheter is in position decompressing the bladder and giving the appearance of circumferential wall thickening. 3. Homogenous hypoattenuation of the enlarged liver is noted. There is also questionable nodularity along the anterior surface of the left lobe of the liver. The spleen is enlarged measuring 13 cm in greatest axial dimension. Please correlate to clinical features of hepatic steatosis, cirrhosis and/or portal venous hypertension. 4. Additional chronic and degenerative changes described in the body the report.
[2017-03-16 12:55] LABS: Urine Appearance Clear; Urine Blood 1+ (Negative); Urine Color Yellow; Urine Ketones Negative (Negative); Urine Protein 3+(>=500 mg/dL) (Negative); Urine Specific Gravity 1.017 (1.010-1.030); Urine Urobilinogen Negative (Negative)
[2017-03-16 14:42] VITALS: BP 159/86
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
== END 2017-03-16 14:40 | disposition home or self-care (01) ==
LOC: ED 10:56
DX: R33.9 Retention of urine, unspecified (principal); Z86.79 Personal history of other diseases of the circulatory system; Z72.0 Tobacco use
CPT/HCPCS: 36415; 51702; 74176; 80053; 81003; 81015; 82550; 83690; 85025; 86140; 96374; 96375; 99283; J2270; J2405

== ENCOUNTER 2017-03-18 11:42 | Observation (INO) | payer OTHER ==
[2017-03-18 13:34] LABS: ABS Basophils 0 10^3/ul (0-0.2); ABS Eosinophils 0.4 10^3/ul (0-0.6); ABS Lymphocytes 1.2 10^3/ul (1.0-4.8); ABS Monocytes 0.5 10^3/ul (0-0.8); ABS Neutrophils 4.4 10^3/ul (1.5-7.7); ABS Nucleated RBC 0 10^3/ul; Eosinophil % 5.7 % (0-6); Hematocrit 36 % (42-52); Hemoglobin 12.2 g/dl (14.0-18.0); Lymphocyte % 18.3 % (25-47); Mean Corpuscular HGB Conc 34 g/dl (31-36); Mean Corpuscular Hemoglobin 31 pg (27-31); Mean Corpuscular Volume 91 fL (80-94); Mean Platelet Volume 8 um3 (7.4-10.4); Nucleated Red Blood Cells % 0; Platelet Count 122 10^3/ul (150-450); Red Blood Count 3.92 10^6/ul (4.0-5.4); Red Cell Distribution Width 17 % (10.5-15); White Blood Count 6.4 10^3/ul (3.5-10.8)
[2017-03-18 13:46] LABS: Urine Appearance Cloudy; Urine Blood 3+ (Negative); Urine Color Amber; Urine Ketones Negative (Negative); Urine Protein 3+(>=500 mg/dL) (Negative); Urine Specific Gravity 1.015 (1.010-1.030); Urine Urobilinogen Negative (Negative)
--- NOTE | 2017-03-18 14:12 | RAD ---
INDICATION: Hypotension COMPARISON: May 18, 2016 TECHNIQUE: PA and lateral dual-energy views were obtained. FINDINGS: Bones/Soft Tissues: There are no acute bony findings. Cardiomediastinal: The cardiomediastinal silhouette is normal. Lungs: There are no infiltrates. Pleura: There are no pleural effusions. Other: None IMPRESSION: RESOLUTION OF RIGHT UPPER LOBE INFILTRATE. LUNGS CLEAR.
[2017-03-18 14:24] LABS: EGFR Non-African American 47.3 (>60)
[2017-03-18] MEDS: NS 0.9% 1000 ML* 2,000 ML IV ONE ×2 (14:26→15:10)
[2017-03-18] MEDS ORDERED: cefTRIAXone(*) 1 GM in NS 0.9% 50 ML* 50 ML IVPB ONE (14:43)
[2017-03-18] MEDS ORDERED: NS 0.9% 1000 ML* 2,000 ML IV ONE (14:57)
[2017-03-18] MEDS ORDERED: cefTRIAXone VIAL(*) 1,000 MG VIAL ONE (15:02)
[2017-03-18] MEDS ORDERED: Dextrose 50% Syringe 50 ML* 25 GM/50 ML SYRINGE IV PUSH PRN (15:35)
[2017-03-18] MEDS ORDERED: Morphine INJ* 2 MG/ML 1 ML CARPUJECT IV PRN (15:36)
[2017-03-18] MEDS ORDERED: cefTRIAXone(*) 1 GM in NS 0.9% 50 ML* 50 ML IVPB SCH (15:36)
[2017-03-18] MEDS ORDERED: Al Hydrox/Mg Hydrox/Simet LIQ* 30 ML UDC PO PRN (15:36)
[2017-03-18] MEDS ORDERED: Acetaminophen TAB* 325 MG PO PRN (15:36)
[2017-03-18] MEDS ORDERED: Potassium Chlor TAB* 10 MEQ TAB.ER PO ONE (15:43)
[2017-03-18] MEDS ORDERED: NS 0.9% 1000 ML* 1,000 ML IV SCH (15:45)
[2017-03-18 15:55] LABS: Urine Appearance Clear; Urine Blood 2+ (Negative); Urine Color Straw; Urine Ketones Negative (Negative); Urine Protein Negative (Negative); Urine Specific Gravity 1.004 (1.010-1.030); Urine Urobilinogen Negative (Negative)
--- NOTE | 2017-03-18 16:00 | RAD ---
HISTORY: Follow-up right hydronephrosis COMPARISONS: CT dated March 16, 2017 TECHNIQUE: Multiple transverse and longitudinal ultrasound images were obtained of the left kidney and bladder using grayscale and color Doppler imaging. FINDINGS: RIGHT KIDNEY: No images are submitted of the right kidney LEFT KIDNEY: There is moderate pelvic caliectasis. There is no appreciable nephrolithiasis. The left kidney measures 10.8 x 6.7 x 5 cm. BLADDER: The bladder is collapsed around a Estrada catheter. AORTA AND IVC: No images are submitted of the vasculature. RETROPERITONEUM: Unremarkable. OTHER: None. IMPRESSION: PERSISTENT LEFT HYDRONEPHROSIS.
[2017-03-18] MEDS: NS 0.9% 1000 ML* 1,000 ML IV SCH (17:45)
[2017-03-18] MEDS: Insulin LISPRO* 1 UNITS UNIT SUBCUT SCH ×2 (17:48→21:06)
[2017-03-18] MEDS: Docusate CAP* 100 MG PO SCH (21:06)
[2017-03-19] MEDS: NS 0.9% 1000 ML* 1,000 ML IV SCH (02:32)
--- NOTE | 2017-03-19 04:03 | HP ---
CC: Dr. Mario Evans from [facility]; Dr. Tapia. HISTORY AND PHYSICAL: DATE OF ADMISSION: 03/18/17 PRIMARY CARE PHYSICIAN: Dr. Tapia. UROLOGIST: Dr. Mario Evans from Urology at [facility]. CHIEF COMPLAINT: The patient presented to have his Estrada removed. HISTORY OF PRESENT ILLNESS: Zachary Gorman is a 56-year-old male with history of further un-described chronic psychiatric issues, who has had problems with urinary retention. Initially, he had a Estrada placed in mid February 2017. After the Estrada was placed he states that he went to see Dr. Evans and his Estrada was discontinued 3 days later. The patient stated that he started to having the same symptoms as before, suggestive of urinary retention of lower abdominal pressure and left flank pain and he came into the ER on 03/16/[address] of the abdomen and pelvis showed left- sided hydronephrosis and perinephric stranding. A Estrada was inserted again and 400 mL of urine was obtained. The patient was discharged home with Estrada catheter in place at that point. The patient was recommended to follow up with the Urology, which he did not yet. He decided to come into the hospital today for his Estrada to be removed since he expected this Estrada was going to be removed once again 2 or 3 days after the insertion. When he was observed in the ED he was noted to be orthostatic. His orthostatic pressures dropped from 120 to 80 when standing up. The patient also stated that he had been having dizzy spells and nearly falling or near syncopal episodes for the past several months. He stated that he spoke with his doctors about it, but he is not aware of any workup that was performed. The patient is going to be admitted with diagnosis of orthostasis. PAST MEDICAL HISTORY: 1. History of diabetes type 2. 2. History of IV drug use and cocaine abuse in the past. That was from past medical records, the patient himself does not admit to using any drugs in the past several months. 3. History of hypertension. 4. Dyslipidemia. 5. Depression. 6. Chronic kidney stage 3, likely due to diabetes. MEDICATIONS: Include: 1. Januvia 100 mg daily. 2. Amlodipine 5 mg daily. 3. Zoloft 50 mg daily. 4. Metformin 500 mg b.i.d. 5. Thiamine 100 mg daily. 6. Remeron 30 mg b.i.d. 7. Flexeril 10 mg 3 times a day p.r.n. 8. Perphenazine 80 mg daily lisinopril/hydrochlorothiazide, 20/12.5 mg 1 tablet daily. 9. Ibuprofen 600 mg every 8 hours p.r.n. 10. Hytrin which is terazosin 2 mg daily. 11. Flomax 0.4 mg daily. 12. Simvastatin 5 mg daily. ALLERGIES: No known drug allergies. FAMILY HISTORY: Positive for mother with uterine cancer and diabetes. SOCIAL HISTORY: The patient denies any tobacco or drug use. He drinks 2 beers a day. He is on disability for being "antisocial." His surrogate decision maker is his daughter Dotty Soares. REVIEW OF SYSTEMS: Please see history of present illness. The patient is a rather poor historian. Stated that he had been nearly passing out or falling in the past several months and this always occurs when he is changing positions He has poor knowledge of his medication, but he states that he takes them all. The remaining 12 systems are reviewed with the patient and were otherwise negative. PHYSICAL EXAMINATION GENERAL: The patient is a very pleasant 56-year-old male who is not in acute distress. Alert, awake, and oriented x3, poor historian VITAL SIGNS: Blood pressure 115/68, heart rate of 98 and regular, respiratory rate 19, and oxygen saturation 97% on room air, temperature of 98.9. HEENT: Head atraumatic and normocephalic. Eyes: Pupils are equal and reactive to light and accommodation. Oropharynx clear, mucosa moist. NECK: Supple. No JVD. No bruits bilaterally. RESPIRATORY: Clear to auscultation bilaterally. CARDIOVASCULAR: Regular rate and rhythm. No murmur. ABDOMEN: Soft, nontender, bowel sounds are present in all 4 quadrants. EXTREMITIES: There is no edema. Pulses are +2 bilaterally. No clubbing or cyanosis. NEURO EVALUATION: Speech is clear. Cranial nerves II through XII are grossly intact. Motor strength is 5/5 bilaterally. BACK: On evaluation of patient's back the patient has left CVA tenderness on palpation. DIAGNOSTIC STUDIES/LAB DATA: Showed sodium of 133, potassium of 3.3, chloride 99, carbon dioxide 26, BUN 15, creatinine 1.53. Liver function tests unremarkable. Lactic acid of 2.5, C-reactive protein of 13. CBC; white blood cell count 6.4, hemoglobin 12.2, hematocrit of 36 and platelets of 122. Portable chest x-ray reported today showed resolution of right upper lobe infiltrate. Lungs are clear. CAT scan obtained on 03/16/17 showed mild left hydronephrosis with perinephric stranding and liver nodularity as well splenomegaly. ASSESSMENT AND PLAN: 1. In regards to the patient's orthostatic hypotension. The patient is on 2 alpha- 1 blockers for his presumed benign prostatic hyperplasia and urinary retention. That is probably is the reason for the patient having orthostasis. He is also on blood pressure medication, but his blood pressure had not been elevated. I will hold all of his antihypertensive as well as his medications that he had been taking for benign prostatic hyperplasia. I will place him on intravenous hydration recheck his orthostatic BP in the morning. 2. In regards to the patient's urinary retention. Patient will have Estrada in place and he needs to see his outpatient urologist with the Estrada in place. 3. The patient has left-sided flank pain. Perinephric stranding on the CT documented 2 days ago. So far his urinalysis showed +3 wbc's and +3 red blood cells but no nitrites and no esterase. At this point, I will place the patient on ceftriaxone empirically, although the urinalysis is not really consistent with urinary tract infection at this point. Urine cultures are going to be obtained. I will repeat ultrasound dedicated to the left kidney to follow up left-sided hydronephrosis. 4. For this diabetes. The patient should not be on metformin since his creatinine is 1.5. For the time being I will place him on insulin sliding scale. He may be good a candidate for glipizide. 5. In regards to the patient's chronic kidney disease stage 3. It is at baseline. 6. DVT prophylaxis. The patient is low risk and ambulation is going to be encouraged. 7. The patient's code status is full and his surrogate is daughter as mentioned above. TIME SPENT: Approximately 65 minutes was spent on the patient's admission, more than half that time was spent [id number] with the patient doing the interview and physical exam. [id number]/[facility] #: [id number] [facility]ello
[2017-03-19] MEDS: Insulin LISPRO* 1 UNITS UNIT SUBCUT SCH ×2 (07:30→12:43)
[2017-03-19] MEDS ORDERED: Sertraline* 50 MG TAB PO SCH (09:00)
[2017-03-19] MEDS ORDERED: Perphenazine TAB* 2 MG PO SCH (09:00)
[2017-03-19] MEDS ORDERED: Thiamine TAB* 100 MG TAB PO SCH (09:00)
[2017-03-19] MEDS ORDERED: Mirtazapine TAB* 15 MG PO SCH (09:00)
[2017-03-19 09:15] LABS: ABS Basophils 0 10^3/ul (0-0.2); ABS Eosinophils 0.4 10^3/ul (0-0.6); ABS Lymphocytes 1.2 10^3/ul (1.0-4.8); ABS Monocytes 0.4 10^3/ul (0-0.8); ABS Neutrophils 3.3 10^3/ul (1.5-7.7); ABS Nucleated RBC 0 10^3/ul; Eosinophil % 6.9 % (0-6); Hematocrit 37 % (42-52); Hemoglobin 12.6 g/dl (14.0-18.0); Lymphocyte % 23.2 % (25-47); Mean Corpuscular HGB Conc 34 g/dl (31-36); Mean Corpuscular Hemoglobin 31 pg (27-31); Mean Corpuscular Volume 92 fL (80-94); Mean Platelet Volume 8 um3 (7.4-10.4); Nucleated Red Blood Cells % 0; Platelet Count 112 10^3/ul (150-450); Red Cell Distribution Width 17 % (10.5-15); White Blood Count 5.3 10^3/ul (3.5-10.8)
[2017-03-19 09:30] LABS: EGFR Non-African American 60.3 (>60)
[2017-03-19] MEDS: Docusate CAP* 100 MG PO SCH (10:11)
[2017-03-19 11:21] VITALS: BP 152/83
[2017-03-19] MEDS ORDERED: cefTRIAXone(*) 1 GM in D5W 50 ML BAG* 50 ML IVPB SCH (15:00)
[2017-03-19] MEDS ORDERED: cefTRIAXone(*) 1 GM in NS 0.9% 50 ML* 50 ML IVPB SCH (15:00)
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
--- NOTE | 2017-03-20 06:01 | DS ---
CC: Dr. Tapia; Dr. Mario Evans in [place]. DISCHARGE SUMMARY: DATE OF ADMISSION: DATE OF DISCHARGE: 03/19/17. HISTORY OF PRESENT ILLNESS: This 56-year-old man who came to the emergency room requesting that his Estrada catheter be removed. He had a Estrada catheter placed in February in the emergency room. He saw Dr. Evans in [place], three days later and his Estrada catheter was removed. I am not sure which medic ations he was prescribed, but he was on tamsulosin and terazosin by history when he came to the emerg ency room. When the patient came to the emergency room on 03/16/17 complaining of left flank pain, CT of the abd omen showed left-sided hydronephrosis with perinephric stranding. A Estrada catheter was inserted and 400 mL of urine was obtained. The patient was sent home with a Estrada catheter in place. The patient came to the emergency room today expecting the Estrada catheter to be removed as he had already had it in for 2 days. In the emergency room, the patient was orthostatic. His blood pressure fell to 88/48 standing. He w as not very symptomatic from this, but this is the primary reason for him to be admitted. The patient states he stopped taking mirtazapine sometime ago. I am tapering off his sertraline and he will take 25 mg for a month and then stop it. He was instructed not to take terazosin. He will c ontinue on tamsulosin. He was told to see Dr. Evans again for urologic followup. He will go home w ith the Estrada catheter and the leg bag. His lisinopril/hydrochlorothiazide combination has been discontinued. He should follow up with Dr. Elmer mercer. It might be helpful if his initial blood pressure medications are used [place] such as terazosin but to be careful to check for orthostatic hypotension, possibly that is in combination with a lower dose of lisinopril would be useful for controlling his blood pressure and also helping with bladder emptying. DISCHARGE DIAGNOSES: 1. Urinary retention. 2. Orthostatic hypotension. 3. History of hypertension. 4. Diabetes. 5. Depression. DISCHARGE MEDICATIONS: 1. Sertraline 25 mg daily for one month and then stop. 2. Simvastatin 5 mg daily. 3. Metformin 500 mg b.i.d. 4. Cyclobenzaprine 10 mg t.i.d. p.r.n. 5. Amlodipine 5 mg daily. 6. Thiamine 100 mg daily. 7. Perphenazine 8 mg daily. 8. Ibuprofen 600 mg every 8 hours p.r.n. 9. Tamsulosin 0.4 mg daily. 10. Sitagliptin 100 mg daily. [id number]/[facility] #: [id number]
[2017-03-20] MEDS ORDERED: Sertraline* 25 MG TAB PO SCH (09:00)
== END 2017-03-19 15:10 | disposition home or self-care (01) ==
LOC: ED 11:42 → MED 14:59
PROVIDERS: ADMIT Internal Medicine; ATTEND Internal Medicine
DX: R33.9 Retention of urine, unspecified (principal); I95.1 Orthostatic hypotension; Z86.79 Personal history of other diseases of the circulatory system; E11.9 Type 2 diabetes mellitus without complications; F32.9 Major depressive disorder, single episode, unspecified; Z72.0 Tobacco use
CPT/HCPCS: 36415; 71046; 76775; 80048; 80053; 81003; 81015; 83605; 85025; 86140; 87040; 96361; 96365; 96366; 99285; A9270-GY; G0378; J0696; J2270

== ENCOUNTER 2017-03-28 12:47 | Emergency (ER) | payer OTHER ==
[2017-03-28] MEDS ORDERED: Ketorolac INJ* 30 MG/ML 1 ML VIAL IV ONE (15:04)
[2017-03-28] MEDS ORDERED: NS 0.9% 1000 ML* 1,000 ML IV ONE (15:04)
[2017-03-28 15:28] LABS: ABS Basophils 0.1 10^3/ul (0-0.2); ABS Eosinophils 0.1 10^3/ul (0-0.6); ABS Lymphocytes 0.7 10^3/ul (1.0-4.8); ABS Monocytes 0.4 10^3/ul (0-0.8); ABS Neutrophils 3.7 10^3/ul (1.5-7.7); ABS Nucleated RBC 0 10^3/ul; Eosinophil % 1.7 % (0-6); Hematocrit 37 % (42-52); Hemoglobin 12.6 g/dl (14.0-18.0); Lymphocyte % 13.5 % (25-47); Mean Corpuscular HGB Conc 34 g/dl (31-36); Mean Corpuscular Hemoglobin 32 pg (27-31); Mean Corpuscular Volume 93 fL (80-94); Mean Platelet Volume 8 um3 (7.4-10.4); Nucleated Red Blood Cells % 0.1; Platelet Count 129 10^3/ul (150-450); Red Cell Distribution Width 17 % (10.5-15)
[2017-03-28 15:40] LABS: EGFR Non-African American 49.9 (>60)
--- NOTE | 2017-03-28 15:57 | RAD ---
Indication: Chest injury. Syncopal episode, right-sided flank pain. CT of the chest performed without IV contrast. Coronal and sagittal reconstructed images were obtained. Inferior thyroid lobes are unremarkable. No mediastinal or hilar adenopathy is noted. The heart is of normal size without evidence of pericardial effusion. The trachea and major bronchi appear patent. Scarring is noted in the left lung base. No evidence of alveolar consolidation is noted. No pneumothorax is noted. The thoracic spine demonstrates diffuse osteopenia with bridging syndesmophytes. No definite fracture is noted. Sternum demonstrates no fracture. No obvious rib fracture is identified. IMPRESSION: No definite pulmonary lesions are identified. No pneumothorax is noted. Degenerative changes of the thoracic spine is noted.
[2017-03-28 17:20] VITALS: BP 154/81
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
== END 2017-03-28 17:17 | disposition home or self-care (01) ==
LOC: ED 12:47
DX: S29.9XXA Unspecified injury of thorax, initial encounter (principal); W19.XXXA Unspecified fall, initial encounter; Y92.9 Unspecified place or not applicable; R55 Syncope and collapse; I10 Essential (primary) hypertension; E11.9 Type 2 diabetes mellitus without complications; F17.210 Nicotine dependence, cigarettes, uncomplicated; R00.0 Tachycardia, unspecified
CPT/HCPCS: 36415; 71250; 80053; 83605; 83735; 84443; 84484; 85025; 93005; 96374; 99283; J1885

== ENCOUNTER 2017-04-21 23:30 | Emergency (ER) | payer OTHER ==
[2017-04-22] MEDS ORDERED: NS 0.9% 1000 ML* 1,000 ML IV ONE ×2 (00:46→02:40)
[2017-04-22 01:09] LABS: ABS Basophils 0 10^3/ul (0-0.2); ABS Eosinophils 0.1 10^3/ul (0-0.6); ABS Lymphocytes 1.2 10^3/ul (1.0-4.8); ABS Monocytes 0.9 10^3/ul (0-0.8); ABS Neutrophils 4.4 10^3/ul (1.5-7.7); ABS Nucleated RBC 0 10^3/ul; Eosinophil % 1.3 % (0-6); Hematocrit 35 % (42-52); Hemoglobin 11.8 g/dl (14.0-18.0); Lymphocyte % 17.9 % (25-47); Mean Corpuscular HGB Conc 34 g/dl (31-36); Mean Corpuscular Hemoglobin 32 pg (27-31); Mean Corpuscular Volume 93 fL (80-94); Mean Platelet Volume 9 um3 (7.4-10.4); Nucleated Red Blood Cells % 0; Platelet Count 136 10^3/ul (150-450); Red Blood Count 3.76 10^6/ul (4.0-5.4); Red Cell Distribution Width 15 % (10.5-15); White Blood Count 6.5 10^3/ul (3.5-10.8)
[2017-04-22 01:24] LABS: EGFR Non-African American 56.1 (>60)
[2017-04-22 05:44] VITALS: BP 99/55
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
--- NOTE | 2017-04-22 08:14 | RAD ---
INDICATION: Chest pain and syncope COMPARISON: Most recent comparison chest x-rays dated March 18, 2017 TECHNIQUE: Single AP portable view of the chest was obtained. FINDINGS: Image quality is compromised due to the relative inferiority of a portable chest x-ray. The heart and mediastinum exhibit normal size and contour. The lungs are grossly clear. There is no evidence of a large pleural effusion. Visualized bones are normal for the patient's age. IMPRESSION: No radiographic evidence for acute cardiopulmonary abnormality on this portable chest x-ray.
== END 2017-04-22 05:45 | disposition home or self-care (01) ==
LOC: ED 23:30
DX: E86.0 Dehydration (principal); R55 Syncope and collapse; F17.210 Nicotine dependence, cigarettes, uncomplicated; F10.10 Alcohol abuse, uncomplicated; H53.8 Other visual disturbances; Z86.79 Personal history of other diseases of the circulatory system
CPT/HCPCS: 36415; 71045; 80053; 84484; 85025; 93005; 99283

== ENCOUNTER 2017-06-17 10:38 | Emergency (ER) | payer OTHER ==
--- NOTE | 2017-06-17 13:19 | RAD ---
Indication: LEFT ankle pain following injury 2 days ago. Comparison: November 21, 2013 LEFT lower leg radiographs. Technique: AP, mortise, and lateral views LEFT ankle and AP and lateral views LEFT lower leg. Report: Subtle nondisplaced oblique fracture of the lateral malleolus extending from superolateral to inferomedial involving the lateral malleolus most consistent with a Ramos type A fracture pattern. Lying soft tissue swelling. No additional fracture about the ankle or lower leg evident. The ankle mortise remains congruent. Talocrural joint effusion. Diffuse mild osteoarthritis. Small to moderate Achilles tendon insertion and plantar fascia origin bone spurs. Peripheral vascular calcifications. IMPRESSION: Nondisplaced distal lateral malleolus fracture consistent with a Ramos type A fracture pattern. Associated soft tissue swelling and ankle joint effusion. The ankle mortise remains congruent.
[2017-06-17] MEDS ORDERED: HYDROcodone/ACETAMIN 5-325 MG* 1 TAB PO ONE (13:29)
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
[2017-06-17 14:47] VITALS: BP 155/92
== END 2017-06-17 14:44 | disposition home or self-care (01) ==
LOC: ED 10:38
DX: S82.65XA Nondisplaced fracture of lateral malleolus of left fibula, initial encounter for closed fracture (principal); W19.XXXA Unspecified fall, initial encounter; Y93.9 Activity, unspecified; Y92.009 Unspecified place in unspecified non-institutional (private) residence as the place of occurrence of the external cause; E11.9 Type 2 diabetes mellitus without complications; Z79.84 Long term (current) use of oral hypoglycemic drugs; I10 Essential (primary) hypertension; R55 Syncope and collapse; R51 Headache; F32.9 Major depressive disorder, single episode, unspecified; F43.10 Post-traumatic stress disorder, unspecified; Z87.891 Personal history of nicotine dependence
CPT/HCPCS: 99283

== ENCOUNTER 2018-05-15 09:22 | Emergency (ER) | payer OTHER ==
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
[2018-05-15 13:00] VITALS: BP 176/83
== END 2018-05-15 12:59 | disposition home or self-care (01) ==
LOC: ED 09:22
DX: S80.862A Insect bite (nonvenomous), left lower leg, initial encounter (principal); L08.9 Local infection of the skin and subcutaneous tissue, unspecified; W57.XXXA Bitten or stung by nonvenomous insect and other nonvenomous arthropods, initial encounter; I10 Essential (primary) hypertension; E11.9 Type 2 diabetes mellitus without complications; Z87.891 Personal history of nicotine dependence
CPT/HCPCS: 99282